=== PATIENT | male | born 1950 | race Caucasian/White ===

== ENCOUNTER → 2016-11-16 | Outpatient (CLI) | payer MEDICARE, BC ==
--- NOTE | 2016-11-16 12:09 | RAD ---
Indication microscopic hematuria. The urinary bladder appears grossly unremarkable. There is no significant post void residual bladder volume. The right kidney measures 13 x 5.6 x 5.9 cm. There is a 2 hypoechoic masses associated with the right kidney compatible with cysts largest measuring 1.4 cm. The left kidney measures 13.2 x 5.9 x 5.9 cm. There are several hypoechoic masses compatible with cysts the largest measuring 2.4 cm in greatest dimension. There is no hydronephrosis or mass seen associated with either kidney. IMPRESSION: Bilateral renal cysts.
== END | disposition home or self-care (01) ==
LOC: US 10:49
PROVIDERS: ATTEND Family Medicine
DX: R31.29 Other microscopic hematuria (principal); N28.1 Cyst of kidney, acquired
CPT/HCPCS: 76770

== ENCOUNTER → 2018-05-19 | Outpatient (CLI) | payer MEDICARE, BC ==
--- NOTE | 2018-05-19 12:20 | RAD ---
EXAM: Abdomen and pelvis CT without intravenous contrast. HISTORY: Hematuria. TECHNIQUE: Computed tomographic images of the abdomen and pelvis were obtained without contrast. Multiplanar reformatting was performed. *One or more of the following individualized dose reduction techniques were utilized for this examination: 1. Automated exposure control. 2. Adjustment of the mA and/or kV according to patient size. 3. Use of iterative reconstruction technique. COMPARISON: None. FINDINGS: Evaluation of the lower thorax demonstrates right greater than left basilar atelectasis. There is suspected hepatic steatosis. No focal hepatic lesion is seen. There is cholelithiasis. The pancreas, spleen and adrenal glands are unremarkable. There are left renal parapelvic cysts, the largest of which measures 3.3 cm. There are a few smaller right renal parapelvic cysts. There is a 1.7 cm hypodense lesion within the lower pole the right kidney which is difficult to assess in the absence of contrast, also likely a cyst. There is no evidence of nephrolithiasis or obstructive uropathy. There is mild urinary bladder wall thickening likely due to relative under distention. There is no appendicitis. There is no bowel obstruction. There is colonic diverticulosis without diverticulitis. There is no lymphadenopathy. There is a small fat-containing right internal hernia. There is no suspicious osseous lesion. There are degenerative changes throughout the spine. IMPRESSION: 1. No evidence of nephroureterolithiasis or obstructive uropathy. 2. [Right renal parapelvic cysts. There is also a 1.7 cm hypodense lesion within the lower pole the right kidney which is difficult to assess in the absence of contrast, possibly a cyst. There is no clear correlate for this finding on the prior sonogram dated 11/16/2016. Follow-up renal sonography can be performed to confirm benignity. 3. Colonic diverticulosis. 4. Suspected hepatic steatosis. 5. Cholelithiasis. Electronically signed by: Lin Mckinnon MD (05/19/2018 12:17 PM) [place] [id number]
== END | disposition home or self-care (01) ==
LOC: CT 10:10
PROVIDERS: ATTEND Family Medicine
DX: K57.30 Diverticulosis of large intestine without perforation or abscess without bleeding (principal); K80.20 Calculus of gallbladder without cholecystitis without obstruction; K46.9 Unspecified abdominal hernia without obstruction or gangrene; N28.1 Cyst of kidney, acquired
CPT/HCPCS: 74176

== ENCOUNTER → 2018-05-26 | Outpatient (CLI) | payer MEDICARE, BC ==
--- NOTE | 2018-05-26 16:30 | RAD ---
Examination: Ultrasound kidneys HISTORY: History of hematuria COMPARISON: 11/16/2016 Findings: The right kidney measures 12.6 x 6.4 x 6.6 cm. The left kidney measures 13.4 x 6.4 x 6.4 cm Bilateral ureteral jets identified. Multiple cystic structures identified in the bilateral kidneys the largest measuring 1.4 cm in the right and 2.4 cm in the left. One of the cysts on the left containing some internal echoes within. The urinary bladder is mildly distended. IMPRESSION: Bilateral renal cysts. One of the cysts contain few internal echoes. Electronically signed by: Anthony Head MD (05/26/2018 4:26 PM) [id number]
== END | disposition home or self-care (01) ==
LOC: US 09:29
PROVIDERS: ATTEND Family Medicine
DX: N28.1 Cyst of kidney, acquired (principal)
CPT/HCPCS: 76770